=== PATIENT | female | born 1965 | race Caucasian/White ===

== ENCOUNTER 2019-06-30 10:41 | Inpatient (IN) | payer OTHER, MEDICAID ==
[~2019-06-30] VITALS: Ht 165.1 cm; Wt 81.6 kg
[~2019-06-30 10:41] MED LIST: ALPR0.5T GT; CYCL-181 GT; GABA300C PO; HYDR-4833 PO; NAPR500T31 PO; PAR20T GT; ZOLP12.52 PO
[2019-06-30 11:09] LABS: Basophils # (auto) 0 10 ^3/uL (0-0.2); Basophils % (auto) 0.3 % (0.0-2.0); Eosinophils # (auto) 0 10 ^3/uL (0-0.8); Eosinophils % (auto) 0.3 % (0.0-7.0); Hematocrit 40.2 % (36.0-46.0); Hemoglobin 13.6 g/dL (12.2-16.2); Lymphocytes # (auto) 1.3 10 ^3/uL (0.4-5.4); Lymphocytes % (auto) 14.9 % (10.0-50.0); Mean Corpuscular Hemoglobin 31.5 pg (28.0-32.0); Mean Corpuscular Hgb Conc. 33.9 g/dL (32.0-36.0); Mean Corpuscular Volume 92.9 fL (80.0-100.0); Monocytes # (auto) 0.6 10 ^3/uL (0-1.3); Monocytes % (auto) 7.5 % (0.0-12.0); Neutrophils # (auto) 6.5 10 ^3/uL (1.6-8.6); Nucleated Red Blood Cells % 0.1 %; Platelet Count (auto) 229 10^3/uL (140-450); Red Blood Cells 4.32 10^6/uL (4.0-5.20); Red Cell Distribution Width 12.4 % (11.8-14.3); White Blood Cell 8.4 10^3/uL (4.4-10.8)
[2019-06-30 11:28] LABS: Albumin 3.4 g/dL (3.4-5.0); Anion Gap 7 (5-15); Blood Urea Nitrogen 3 mg/dL (7-18); Carbon Dioxide 32 mmol/L (21-32); Chloride 99 mmol/L (98-107); Glucose 110 mg/dL (74-106); Potassium 3.5 mmol/L (3.5-5.1); Sodium 138 mmol/L (136-145)
[2019-06-30 11:33] LABS: Alanine Aminotransferase 32 U/L (13-56); Alkaline Phosphatase 68 U/L (45-117); Aspartate Aminotransferase 28 U/L (15-37); BUN/Creatinine Ratio 4.3; Bilirubin, Total 0.2 mg/dL (0.2-1.0); GFR African American 114 mL/min; GFR Non-African American 95 mL/min; Total Protein 7.2 g/dL (6.4-8.2)
[2019-06-30] MEDS ORDERED: IPRATROPIUM BROM 0.5 MG/2.5ML INH SOL HHN ONE (12:30)
[2019-06-30] MEDS ORDERED: ALBUTEROL SULF 2.5 MG/0.5ML(0.5%) NEB SOLN HHN ONE (12:30)
[2019-06-30] MEDS ORDERED: AZITHROMYCIN 500MG/ 250ML 250 ML IV ONE (12:30)
[2019-06-30] MEDS ORDERED: ACETAMINOPHEN 500 MG TAB PO PRN (15:30)
[2019-06-30] MEDS ORDERED: MORPHINE SULF INJ 2 MG/ML SYRINGE 1ML IV PRN ×2 (15:30)
[2019-06-30] MEDS ORDERED: NITROGLYCERIN 0.4 MG SL TAB SL PRN (15:30)
[2019-06-30] MEDS ORDERED: ONDANSETRON HCL 4 MG/2 ML VIAL IV PRN (15:30)
[2019-06-30] MEDS ORDERED: IOHEXOL 300 MG/ML 100ML BOTTLE IJ ONE (17:14)
[2019-06-30] MEDS ORDERED: NICOTINE 21MG/24 HR TOPICAL PATCH TD ONE (17:37)
[2019-06-30] MEDS: NICOTINE 21MG/24 HR TOPICAL PATCH TD SCH (17:43)
[2019-06-30] MEDS: ALBUTEROL SULF 2.5 MG/0.5ML(0.5%) NEB SOLN NEB SCH ×2 (18:20→22:01)
[2019-06-30] MEDS: IPRATROPIUM BROM 0.5 MG/2.5ML INH SOL NEB SCH ×2 (18:20→22:01)
[2019-06-30] MEDS: BUDESONIDE (INHALATION) 0.5 MG/2 ML NEB NEB SCH (18:20)
[2019-06-30 18:59] VITALS: BP 95/46
[2019-06-30 19:45] VITALS: BP 102/49
[2019-06-30] MEDS: methylPREDNISolone SOD SUCC 40 MG/ML VL IV SCH (21:46)
[2019-06-30] MEDS: QUEtiapine FUMARATE 100 MG TAB PO SCH (21:47)
[2019-06-30] MEDS: SERTRALINE HCL 50 MG TAB PO SCH (21:47)
[2019-06-30] MEDS: GABAPENTIN 400 MG CAP PO SCH (21:47)
[2019-06-30] MEDS: DOXYCYCLINE 100 MG TAB/CAP PO SCH (21:47)
[2019-06-30] MEDS: HYDROcodone-ACET 10/325MG TAB PO PRN (21:48)
[2019-06-30] MEDS: ATORVASTATIN 20 MG TAB PO SCH (21:48)
[2019-06-30] MEDS: NORTRIPTYLINE HCL 25 MG CAP PO SCH ×2 (21:49→22:26)
[2019-06-30 22:00] VITALS: BP 102/49
[2019-06-30] MEDS ORDERED: ASPI-231 PO (23:27)
[2019-06-30] MEDS ORDERED: SIMV-8 PO (23:27)
[2019-06-30] MEDS ORDERED: ROPI6TAB PO (23:28)
[2019-06-30] MEDS ORDERED: NIC21P TOP (23:31)
[2019-06-30] MEDS ORDERED: QUET50TA PO (23:33)
[2019-07-01] MEDS ORDERED: TIZA6CAP PO (01:21)
[2019-07-01] MEDS ORDERED: NORT25CA PO (01:21)
[2019-07-01] MEDS ORDERED: SERT25TA84 PO (01:22)
[2019-07-01 05:00] VITALS: BP 103/58
[2019-07-01] MEDS: GABAPENTIN 400 MG CAP PO SCH ×3 (06:07→20:16)
[2019-07-01] MEDS: HYDROcodone-ACET 10/325MG TAB PO PRN ×3 (06:08→20:16)
[2019-07-01 06:11] LABS: BUN/Creatinine Ratio 8.6; Calcium 9.2 mg/dL (8.5-10.1); Potassium 4.2 mmol/L (3.5-5.1)
[2019-07-01 06:12] LABS: Basophils # (auto) 0 10 ^3/uL (0-0.2); Basophils % (auto) 0.5 % (0.0-2.0); Eosinophils # (auto) 0 10 ^3/uL (0-0.8); Hematocrit 38.4 % (36.0-46.0); Hemoglobin 13.2 g/dL (12.2-16.2); Lymphocytes # (auto) 0.7 10 ^3/uL (0.4-5.4); Lymphocytes % (auto) 12.2 % (10.0-50.0); Mean Corpuscular Hemoglobin 31.9 pg (28.0-32.0); Mean Corpuscular Hgb Conc. 34.4 g/dL (32.0-36.0); Mean Corpuscular Volume 92.8 fL (80.0-100.0); Monocytes # (auto) 0.1 10 ^3/uL (0-1.3); Monocytes % (auto) 2.2 % (0.0-12.0); Neutrophils % (auto) 85.1 % (37.0-80.0); Platelet Count (auto) 230 10^3/uL (140-450); Red Blood Cells 4.13 10^6/uL (4.0-5.20); Red Cell Distribution Width 12.9 % (11.8-14.3); White Blood Cell 5.9 10^3/uL (4.4-10.8)
[2019-07-01] MEDS: IPRATROPIUM BROM 0.5 MG/2.5ML INH SOL NEB SCH ×5 (06:36→22:37)
[2019-07-01] MEDS: ALBUTEROL SULF 2.5 MG/0.5ML(0.5%) NEB SOLN NEB SCH ×5 (06:36→22:37)
[2019-07-01 09:00] VITALS: BP 116/72
[2019-07-01] MEDS: NICOTINE 21MG/24 HR TOPICAL PATCH TD SCH (09:07)
[2019-07-01] MEDS: FAMOTIDINE 20 MG TAB PO SCH (09:07)
[2019-07-01] MEDS: DOXYCYCLINE 100 MG TAB/CAP PO SCH (09:08)
[2019-07-01] MEDS: methylPREDNISolone SOD SUCC 40 MG/ML VL IV SCH (09:08)
[2019-07-01] MEDS ORDERED: PNEUMOCOCCAL VACC POLYS 25 MCG/0.5 ML VIAL IM ONE (10:00)
[2019-07-01] MEDS ORDERED: INFLUENZA QUAD 2019-2020 0.5ml SYRG IM ONE (10:00)
[2019-07-01] MEDS: BUDESONIDE (INHALATION) 0.5 MG/2 ML NEB NEB SCH ×2 (10:24→22:37)
[2019-07-01] MEDS ORDERED: cefTRIAXone 1GM/50ML D5W 50 ML IV ONE (11:30)
[2019-07-01] MEDS ORDERED: AZITHROMYCIN 500MG/ 250ML 250 ML IV ONE (12:30)
[2019-07-01 13:00] VITALS: BP 111/65
[2019-07-01 13:33] LABS: Urine Bacteria NONE SEEN /hpf (None Seen); Urine Blood Negative /uL (Negative); Urine Specific Gravity 1.014 (1.001-1.035); Urine WBC <1 /hpf (0 - 5)
[2019-07-01] MEDS: methylPREDNISolone SOD SUCC 125 MG/2 ML VL IV SCH ×2 (14:10→22:52)
[2019-07-01 17:00] VITALS: BP 108/65
[2019-07-01] MEDS: SERTRALINE HCL 50 MG TAB PO SCH (20:15)
[2019-07-01] MEDS: QUEtiapine FUMARATE 100 MG TAB PO SCH (20:16)
[2019-07-01] MEDS: PRAMIPEXOLE DIHYDROCHLORIDE MO 0.25 MG TAB PO SCH (20:17)
[2019-07-01 22:00] VITALS: BP 117/70
[2019-07-01] MEDS: ATORVASTATIN 20 MG TAB PO SCH (22:52)
[2019-07-02 05:00] VITALS: BP 99/60
[2019-07-02] MEDS: methylPREDNISolone SOD SUCC 125 MG/2 ML VL IV SCH ×3 (05:46→21:10)
[2019-07-02] MEDS: GABAPENTIN 400 MG CAP PO SCH ×3 (05:46→21:07)
[2019-07-02] MEDS: ALBUTEROL SULF 2.5 MG/0.5ML(0.5%) NEB SOLN NEB SCH ×5 (06:06→22:21)
[2019-07-02] MEDS: IPRATROPIUM BROM 0.5 MG/2.5ML INH SOL NEB SCH ×5 (06:07→22:21)
[2019-07-02] MEDS ORDERED: GABA300C10 PO (08:11)
[2019-07-02 09:00] VITALS: BP 122/73
[2019-07-02] MEDS: cefTRIAXone 1GM/50ML D5W 50 ML IV SCH (09:11)
[2019-07-02] MEDS: PRAMIPEXOLE DIHYDROCHLORIDE MO 0.25 MG TAB PO SCH ×2 (09:11→21:08)
[2019-07-02] MEDS: FAMOTIDINE 20 MG TAB PO SCH (09:11)
[2019-07-02] MEDS: HYDROcodone-ACET 10/325MG TAB PO PRN ×3 (09:12→21:08)
[2019-07-02] MEDS: NICOTINE 21MG/24 HR TOPICAL PATCH TD SCH (09:12)
[2019-07-02] MEDS: BUDESONIDE (INHALATION) 0.5 MG/2 ML NEB NEB SCH ×2 (09:36→18:23)
[2019-07-02] MEDS ORDERED: AZITHROMYCIN 500MG/ 250ML 250 ML IV SCH (10:00)
[2019-07-02 12:54] VITALS: BP 96/53
[2019-07-02 17:00] VITALS: BP 109/58
[2019-07-02] MEDS: QUEtiapine FUMARATE 100 MG TAB PO SCH (21:07)
[2019-07-02] MEDS: ATORVASTATIN 20 MG TAB PO SCH (21:08)
[2019-07-02] MEDS: SERTRALINE HCL 50 MG TAB PO SCH (21:09)
[2019-07-02 21:42] VITALS: BP 118/66
[2019-07-02] MEDS ORDERED: NORTRIPTYLINE HCL 25 MG CAP PO SCH (22:00)
[2019-07-03 02:00] VITALS: BP 114/69
[2019-07-03] MEDS: GABAPENTIN 400 MG CAP PO SCH (06:43)
[2019-07-03] MEDS: HYDROcodone-ACET 10/325MG TAB PO PRN (06:43)
[2019-07-03] MEDS: methylPREDNISolone SOD SUCC 125 MG/2 ML VL IV SCH (06:43)
[2019-07-03] MEDS: IPRATROPIUM BROM 0.5 MG/2.5ML INH SOL NEB SCH ×2 (07:52→10:55)
[2019-07-03] MEDS: ALBUTEROL SULF 2.5 MG/0.5ML(0.5%) NEB SOLN NEB SCH ×2 (07:52→10:55)
[2019-07-03] MEDS: BUDESONIDE (INHALATION) 0.5 MG/2 ML NEB NEB SCH (07:52)
[2019-07-03] MEDS: cefTRIAXone 1GM/50ML D5W 50 ML IV SCH (08:26)
[2019-07-03 09:13] VITALS: BP 120/66
[2019-07-03] MEDS: PRAMIPEXOLE DIHYDROCHLORIDE MO 0.25 MG TAB PO SCH (09:36)
[2019-07-03] MEDS: FAMOTIDINE 20 MG TAB PO SCH (09:37)
[2019-07-03] MEDS: NICOTINE 21MG/24 HR TOPICAL PATCH TD SCH (09:37)
[2019-07-03] MEDS ORDERED: AZITHROMYCIN 250 MG TAB PO SCH (10:00)
[2019-07-03 12:38] VITALS: BP 120/65
== END 2019-07-03 12:45 | disposition home or self-care (01) | DRG 193 ==
LOC: ER 10:41 → TELE 10:42 → TELE-CENTR 19:36
PROVIDERS: ADMIT Nurse Practitioner Acute Care; ATTEND Internal Medicine
DX: J18.9 Pneumonia, unspecified organism (principal); J96.01 Acute respiratory failure with hypoxia; J44.1 Chronic obstructive pulmonary disease with (acute) exacerbation; J44.0 Chronic obstructive pulmonary disease with (acute) lower respiratory infection; F32.9 Major depressive disorder, single episode, unspecified; G89.29 Other chronic pain; E78.5 Hyperlipidemia, unspecified; F17.210 Nicotine dependence, cigarettes, uncomplicated; F41.9 Anxiety disorder, unspecified; G25.81 Restless legs syndrome; J98.01 Acute bronchospasm; M79.7 Fibromyalgia; E78.00 Pure hypercholesterolemia, unspecified; Z90.49 Acquired absence of other specified parts of digestive tract; Z90.710 Acquired absence of both cervix and uterus; Z79.899 Other long term (current) drug therapy; Z81.1 Family history of alcohol abuse and dependence; Z83.3 Family history of diabetes mellitus; Z82.49 Family history of ischemic heart disease and other diseases of the circulatory system; Z82.79 Family history of other congenital malformations, deformations and chromosomal abnormalities; Z82.5 Family history of asthma and other chronic lower respiratory diseases
CPT/HCPCS: 36415; 71045; 71260; 80048; 80053; 81001; 83605; 83735; 83880; 84484; 85025; 85379; 87040; 87804; 93005; 93306; 94640; G0378; J0696

== ENCOUNTER 2020-12-29 14:00 | Inpatient (IN) | payer OTHER, MEDICAID ==
[~2020-12-29] VITALS: Ht 165.1 cm; Wt 74.8 kg
[~2020-12-29 14:00] MED LIST changes: -ALPR0.5T GT; +ASPI-231 PO; -CYCL-181 GT; +GABA300C10 PO; -NAPR500T31 PO; +NIC21P TOP; +NORT25CA PO; -PAR20T GT; +QUET50TA PO; +ROPI6TAB PO; +SERT25TA84 PO; +SIMV-8 PO; +TIZA6CAP PO; -ZOLP12.52 PO
[2020-12-29] MEDS ORDERED: methylPREDNISolone SOD SUCC 125 MG/2 ML VL IV ONE (14:30)
[2020-12-29 15:21] LABS: Basophils # (auto) 0 10 ^3/uL (0-0.2); Basophils % (auto) 0.3 % (0.0-2.0); Eosinophils # (auto) 0.1 10 ^3/uL (0-0.8); Eosinophils % (auto) 0.5 % (0.0-7.0); Hematocrit 48.4 % (36.0-46.0); Hemoglobin 16.1 g/dL (12.2-16.2); Lymphocytes # (auto) 1.3 10 ^3/uL (0.4-5.4); Lymphocytes % (auto) 9.8 % (10.0-50.0); Mean Corpuscular Hgb Conc. 33.3 g/dL (32.0-36.0); Monocytes # (auto) 0.8 10 ^3/uL (0-1.3); Monocytes % (auto) 6.2 % (0.0-12.0); Neutrophils % (auto) 83.2 % (37.0-80.0); White Blood Cell 13.3 10^3/uL (4.4-10.8)
[2020-12-29 15:32] LABS: Alanine Aminotransferase 17 U/L (13-56); Albumin 3.2 g/dL (3.4-5.0); Anion Gap 5 (5-15); Aspartate Aminotransferase 13 U/L (15-37); BUN/Creatinine Ratio 4.8; Blood Urea Nitrogen 3 mg/dL (7-18); Calcium 8.8 mg/dL (8.5-10.1); Carbon Dioxide 31 mmol/L (21-32); Chloride 94 mmol/L (98-107); GFR African American 126 mL/min; GFR Non-African American 104 mL/min; Glucose 108 mg/dL (74-106); Potassium 4.1 mmol/L (3.5-5.1); Sodium 130 mmol/L (136-145)
[2020-12-29 15:37] LABS: Alkaline Phosphatase 90 U/L (45-117); Bilirubin, Total 0.3 mg/dL (0.2-1.0); Total Protein 7.1 g/dL (6.4-8.2)
[2020-12-29] MEDS ORDERED: ACETAMINOPHEN 325 MG TAB PO ONE (18:15)
[2020-12-29] MEDS ORDERED: ONDANSETRON HCL 4 MG/2 ML VIAL IV PRN (20:00)
[2020-12-29] MEDS ORDERED: ALBUTEROL SULF 2.5 MG/0.5ML(0.5%) NEB SOLN NEB PRN (20:00)
[2020-12-29] MEDS ORDERED: ACETAMINOPHEN 325 MG TAB PO PRN (20:00)
[2020-12-29] MEDS ORDERED: SODIUM CHLORIDE 0.9% 500 ML IV ONE (20:00)
[2020-12-29] MEDS ORDERED: AZITHROMYCIN 500MG/ 250ML 250 ML IV ONE (20:00)
[2020-12-29] MEDS: TEMAZEPAM 15 MG CAP PO PRN ×2 (20:50→23:56)
[2020-12-29] MEDS: ASCORBIC ACID 500 MG TAB PO SCH (22:08)
[2020-12-29] MEDS ORDERED: HYDROcodone-ACET 5/325MG TAB PO ONE (22:30)
[2020-12-29] MEDS ORDERED: guaiFENesin-DM 100/10mg/5ml SYR PO PRN (22:30)
[2020-12-30] MEDS ORDERED: TRAZ1TAB12 PO (04:36)
[2020-12-30] MEDS ORDERED: GABA-339 PO (04:56)
[2020-12-30] MEDS ORDERED: FAMO20TA10 PO (04:56)
[2020-12-30] MEDS ORDERED: QUET300T23 PO (04:56)
[2020-12-30] MEDS ORDERED: MELO1TAB56 PO (04:56)
[2020-12-30] MEDS ORDERED: NORT25CA PO (04:56)
[2020-12-30] MEDS ORDERED: PRAM1TAB2 PO (04:56)
[2020-12-30] MEDS ORDERED: HYDR-4798 PO (04:56)
[2020-12-30] MEDS ORDERED: SERT50TA19 PO (04:56)
[2020-12-30 05:18] LABS: Basophils # (auto) 0 10 ^3/uL (0-0.2); Basophils % (auto) 0.1 % (0.0-2.0); Eosinophils # (auto) 0 10 ^3/uL (0-0.8); Hematocrit 51.5 % (36.0-46.0); Hemoglobin 17.3 g/dL (12.2-16.2); Lymphocytes # (auto) 0.7 10 ^3/uL (0.4-5.4); Lymphocytes % (auto) 8.5 % (10.0-50.0); Mean Corpuscular Hemoglobin 31.4 pg (28.0-32.0); Mean Corpuscular Hgb Conc. 33.6 g/dL (32.0-36.0); Mean Corpuscular Volume 93.6 fL (80.0-100.0); Monocytes # (auto) 0.2 10 ^3/uL (0-1.3); Neutrophils # (auto) 6.9 10 ^3/uL (1.6-8.6); Neutrophils % (auto) 89.4 % (37.0-80.0); Red Cell Distribution Width 13.8 % (11.8-14.3); White Blood Cell 7.7 10^3/uL (4.4-10.8)
[2020-12-30 05:40] LABS: BUN/Creatinine Ratio 8.3; Calcium 9.5 mg/dL (8.5-10.1)
[2020-12-30] MEDS ORDERED: HYDROcodone-ACET 10/325MG TAB PO PRN (07:00)
[2020-12-30] MEDS ORDERED: cefTRIAXone 1GM/50ML D5W 50 ML IV SCH (09:00)
[2020-12-30] MEDS ORDERED: MELOXICAM 15 MG PO SCH ×2 (10:00)
[2020-12-30] MEDS ORDERED: DexAMETHasone SOD PHOS 10MG/1ML VIAL INJ IV SCH (10:00)
[2020-12-30] MEDS ORDERED: PANTOPRAZOLE 40 MG TAB PO SCH (10:00)
[2020-12-30] MEDS ORDERED: ZINC SULFATE 220mg CAP or TAB PO SCH (10:00)
[2020-12-30] MEDS ORDERED: AZITHROMYCIN 500MG/ 250ML 250 ML IV SCH (10:00)
[2020-12-30] MEDS ORDERED: ENOXAPARIN SOD 40 MG/0.4 ML SYRINGE SC SCH (10:00)
[2020-12-30] MEDS: ASCORBIC ACID 500 MG TAB PO SCH (10:16)
[2020-12-30 10:43] VITALS: BP 131/73
[2020-12-30] MEDS ORDERED: GABAPENTIN 300 MG CAP PO SCH (14:00)
== END 2020-12-30 11:33 | disposition left against medical advice (07) | DRG 193 ==
LOC: ER 14:00 → OVERFLOW 19:55
PROVIDERS: ADMIT Nurse Practitioner; ATTEND Internal Medicine Nephrology
DX: J12.9 Viral pneumonia, unspecified (principal); J96.01 Acute respiratory failure with hypoxia; E78.5 Hyperlipidemia, unspecified; F12.90 Cannabis use, unspecified, uncomplicated; F17.210 Nicotine dependence, cigarettes, uncomplicated; F41.9 Anxiety disorder, unspecified; I10 Essential (primary) hypertension; Z53.29 Procedure and treatment not carried out because of patient's decision for other reasons; Z20.822 Contact with and (suspected) exposure to COVID-19; F32.9 Major depressive disorder, single episode, unspecified; Z90.49 Acquired absence of other specified parts of digestive tract; Z83.3 Family history of diabetes mellitus; Z82.49 Family history of ischemic heart disease and other diseases of the circulatory system; Z82.5 Family history of asthma and other chronic lower respiratory diseases; Z90.710 Acquired absence of both cervix and uterus; Z98.51 Tubal ligation status
CPT/HCPCS: 36415; 71046; 80048; 80053; 82728; 83605; 83880; 84484; 85025; 85379; 86141; 87040; 87426; 93005; 94640; 96365; 96366; 96367; 96372; 96375; G0378; J0696; J1100

== ENCOUNTER 2021-05-23 16:52 | Inpatient (IN) | payer OTHER, MEDICAID ==
[~2021-05-23] VITALS: Ht 165.1 cm; Wt 79.4 kg
[~2021-05-23 16:52] MED LIST changes: -ASPI-231 PO; +ASPI1TAB20 PO; +FAMO20TA10 PO; +GABA-339 PO; -GABA300C PO; -GABA300C10 PO; +HYDR-4798 PO; -HYDR-4833 PO; +MELO1TAB56 PO; +PRAM1TAB2 PO; +QUET300T24 PO; -QUET50TA PO; -ROPI6TAB PO; -SERT25TA84 PO; +SERT50TA19 PO; +TRAZ1TAB12 PO
[2021-05-23] MEDS ORDERED: methylPREDNISolone SOD SUCC 125 MG/2 ML VL IV ONE (17:15)
[2021-05-23 17:32] LABS: Basophils # (auto) 0 10 ^3/uL (0-0.2); Basophils % (auto) 0.4 % (0.0-2.0); Eosinophils # (auto) 0.2 10 ^3/uL (0-0.8); Eosinophils % (auto) 2.4 % (0.0-7.0); Hematocrit 48.7 % (36.0-46.0); Hemoglobin 16.6 g/dL (12.2-16.2); Lymphocytes # (auto) 2.7 10 ^3/uL (0.4-5.4); Lymphocytes % (auto) 30.2 % (10.0-50.0); Mean Corpuscular Hgb Conc. 34.1 g/dL (32.0-36.0); Mean Corpuscular Volume 93.9 fL (80.0-100.0); Monocytes # (auto) 0.8 10 ^3/uL (0-1.3); Monocytes % (auto) 8.5 % (0.0-12.0); Neutrophils # (auto) 5.3 10 ^3/uL (1.6-8.6); Neutrophils % (auto) 58.5 % (37.0-80.0); Nucleated Red Blood Cells % 0.1 %; Red Blood Cells 5.19 10^6/uL (4.0-5.20); Red Cell Distribution Width 14.4 % (11.8-14.3)
[2021-05-23 17:56] LABS: Albumin 3.6 g/dL (3.4-5.0); Calcium 8.8 mg/dL (8.5-10.1); Potassium 4.5 mmol/L (3.5-5.1)
[2021-05-23 18:02] LABS: BUN/Creatinine Ratio 5.9; Bilirubin, Total 0.3 mg/dL (0.2-1.0); CRP High Sensitivity 0.29 mg/dL (< 0.3); Total Protein 6.7 g/dL (6.4-8.2)
[2021-05-23 20:54] VITALS: BP 157/86
[2021-05-23] MEDS ORDERED: NITROGLYCERIN 0.4 MG SL TAB SL PRN (22:15)
[2021-05-23] MEDS ORDERED: ONDANSETRON HCL 4 MG/2 ML VIAL IV PRN (22:15)
[2021-05-23] MEDS ORDERED: MORPHINE SULFATE INJECTION 2 MG/ML SYRG IV PRN (22:15)
[2021-05-23] MEDS ORDERED: ACETAMINOPHEN 325 MG TAB PO PRN (22:15)
[2021-05-24] MEDS ORDERED: IPRATROPIUM BROM 0.5 MG/2.5ML INH SOL NEB SCH (06:00)
[2021-05-24] MEDS ORDERED: ALBUTEROL SULF 2.5 MG/0.5ML(0.5%) NEB SOLN NEB SCH (06:00)
[2021-05-24] MEDS ORDERED: QUEtiapine FUMARATE 25 MG TAB PO SCH (10:00)
[2021-05-24] MEDS ORDERED: methylPREDNISolone SOD SUCC 125 MG/2 ML VL IV SCH (10:00)
[2021-05-24] MEDS ORDERED: GABAPENTIN 300 MG CAP PO SCH (10:00)
[2021-05-24] MEDS ORDERED: ENOXAPARIN SOD 40 MG/0.4 ML SYRINGE SC SCH (10:00)
[2021-05-24] MEDS ORDERED: SERTRALINE HCL 50 MG TAB PO SCH (10:00)
[2021-05-24] MEDS ORDERED: ATORVASTATIN 20 MG TAB PO SCH (22:00)
== END 2021-05-24 02:17 | disposition left against medical advice (07) | DRG 189 ==
LOC: TELE 16:52 → ER 16:52 → TELE 22:03
PROVIDERS: ADMIT Nurse Practitioner; ATTEND Nurse Practitioner
DX: J96.21 Acute and chronic respiratory failure with hypoxia (principal); J44.1 Chronic obstructive pulmonary disease with (acute) exacerbation; F17.210 Nicotine dependence, cigarettes, uncomplicated; F32.A Depression, unspecified; F41.9 Anxiety disorder, unspecified; R53.81 Other malaise; Z20.822 Contact with and (suspected) exposure to COVID-19; Z90.710 Acquired absence of both cervix and uterus; Z82.49 Family history of ischemic heart disease and other diseases of the circulatory system; Z83.3 Family history of diabetes mellitus; Z90.49 Acquired absence of other specified parts of digestive tract; Z98.51 Tubal ligation status
CPT/HCPCS: 36415; 71045; 80053; 82728; 83605; 83735; 83880; 84484; 85025; 85379; 86141; 87040; 87426; 93005; 96374; G0378